=== PATIENT | female | born 1975 | race African-American/Black ===

== ENCOUNTER 2017-04-26 22:51 | Emergency (ER) | payer MEDICAID ==
[~2017-04-26] VITALS: Ht 177.8 cm; Wt 66.0 kg
[~2017-04-26 22:51] MED LIST: ONDA4TAB21 PO
[2017-04-27] MEDS ORDERED: SODIUM CHLORIDE 0.9% 1,000 ML IV ONE (01:23)
[2017-04-27] MEDS ORDERED: FAMOTIDINE 20MG/2ML VIAL IV ONE (01:30)
[2017-04-27 01:51] LABS: BASOPHILS % 1.4 % (0.0-2.0); HEMATOCRIT. 24.9 % (36.0-48.0); HEMOGLOBIN. 7.8 g/dL (12.0-16.0); LYMPHOCYTES % 13.3 % (20.0-50.0); MEAN CORPUSCULAR HEMOGLOBIN 20.7 pg (28.0-32.0); MEAN CORPUSCULAR VOLUME 65.8 fL (81.0-99.0); MEAN PLATELET VOLUME 8.6 fl (7.4-10.4); MONOCYTES % 4.6 % (2.0-8.0); NEUTROPHILS % 80.7 % (40.0-76.0); PLATELET 177 x1000/uL (130-400); RED BLOOD CELL COUNT 3.78 mill/uL (4.2-5.4); RED CELL DISTRIBUTION WIDTH 22.6 % (11.6-14.6)
[2017-04-27 01:52] LABS: CLARITY URINE CLOUDY (CLEAR); COLOR URINE YELLOW (YELLOW); GLUCOSE URINE NEGATIVE (NEGATIVE); KETONES URINE 3+ (NEGATIVE); LEUKOCYTE ESTERASE URINE NEGATIVE (NEGATIVE); NITRITE URINE NEGATIVE (NEGATIVE); OCCULT BLOOD URINE NEGATIVE (NEGATIVE); PROTEIN URINE TRACE (NEGATIVE); SPECIFIC GRAVITY URINE 1.023 (1.005-1.030)
[2017-04-27 01:56] LABS: CHLORIDE 105 mEq/L (98-107)
[2017-04-27 01:58] LABS: PARTIAL THROMBOPLASTIN TIME 25.9 sec (24.0-34.0); PROTHROMBIN TIME 10.7 sec
[2017-04-27 02:04] LABS: CARBON DIOXIDE 21 mEq/L (21-32)
[2017-04-27] MEDS ORDERED: METOCLOPRAMIDE HCL 10MG/2ML VIAL IV ONE (02:45)
[2017-04-27] MEDS ORDERED: POTASSIUM CHLORIDE 20MEQ/PACKET PO ONE (02:45)
[2017-04-27] MEDS ORDERED: ONDANSETRON HCL 4MG/2ML VIAL IV NR (03:00)
[2017-04-27 03:17] VITALS: BP 129/73
== END 2017-04-27 03:36 | disposition home or self-care (01) ==
LOC: ER 22:52
DX: E86.0 Dehydration (principal); E87.6 Hypokalemia; D64.9 Anemia, unspecified
CPT/HCPCS: 36415; 80053; 81001; 83690; 85025; 85610; 85730; 96361; 96374; 96375; 99284; J2405; J2765; J3490; J7030; Z7610

== ENCOUNTER 2017-11-19 12:05 | Emergency (ER) | payer MEDICAID ==
[~2017-11-19] VITALS: Ht 177.8 cm; Wt 64.0 kg
[2017-11-19 14:09] LABS: CLARITY URINE CLEAR (CLEAR); COLOR URINE YELLOW (YELLOW); KETONES URINE 4+ (NEGATIVE); LEUKOCYTE ESTERASE URINE NEGATIVE (NEGATIVE); NITRITE URINE NEGATIVE (NEGATIVE); OCCULT BLOOD URINE NEGATIVE (NEGATIVE); PH URINE >=9.0 (4.5-8.0); PROTEIN URINE 1+ (NEGATIVE); SPECIFIC GRAVITY URINE 1.024 (1.005-1.030)
[2017-11-19] MEDS ORDERED: SODIUM CHLORIDE 0.9% 1,000 ML IV ONE (14:50)
[2017-11-19] MEDS ORDERED: FAMOTIDINE 20MG/2ML VIAL IV STA (14:50)
[2017-11-19] MEDS ORDERED: ONDANSETRON HCL 4MG/2ML VIAL IV STA (14:50)
[2017-11-19] MEDS ORDERED: KETOROLAC 30MG/ML VIAL IV STA (14:50)
[2017-11-19] MEDS ORDERED: DICYCLOMINE 10 MG/5 ML ORAL SYR PO STA (14:50)
[2017-11-19 15:13] LABS: HEMATOCRIT. 30.2 % (36.0-48.0); HEMOGLOBIN. 9.6 g/dL (12.0-16.0); MEAN CORPUSCULAR HEMOGLOBIN 25.1 pg (28.0-32.0); MEAN CORPUSCULAR VOLUME 78.5 fL (81.0-99.0); MEAN PLATELET VOLUME 8.2 fl (7.4-10.4); PLATELET 235 x1000/uL (130-400); RED BLOOD CELL COUNT 3.84 mill/uL (4.2-5.4); RED CELL DISTRIBUTION WIDTH 23.2 % (11.6-14.6)
[2017-11-19 15:18] LABS: CHLORIDE 107 mEq/L (98-107)
[2017-11-19 15:23] LABS: CARBON DIOXIDE 20 mEq/L (21-32); ETHANOL BLOOD < 10 mg/dL
[2017-11-19 16:35] LABS: PLATELET ESTIMATE NORMAL
[2017-11-19 16:49] VITALS: BP 125/80
[2017-11-19 17:04] LABS: *AMPHETAMINES SCREEN URINE NEGATIVE (NEGATIVE); *BARBITURATES SCREEN URINE NEGATIVE (NEGATIVE); *BENZODIAZEPINES SCREEN URINE NEGATIVE (NEGATIVE); *COCAINE SCREEN URINE NEGATIVE (NEGATIVE); METHADONE URINE SCREEN NEGATIVE (NEGATIVE); OPIATES URINE SCREEN NEGATIVE (NEGATIVE); PHENCYCLIDINE URINE SCREEN NEGATIVE (NEGATIVE)
[2017-11-19 17:05] LABS: CANNABINOID URINE SCREEN PRESUMTIVE POSITIVE (NEGATIVE)
[2017-11-19] MEDS ORDERED: ONDANSETRON 4MG ODT PO ONE (17:45)
== END 2017-11-19 18:33 | disposition home or self-care (01) ==
LOC: ER 12:37
DX: E86.0 Dehydration (principal); F17.210 Nicotine dependence, cigarettes, uncomplicated; F12.10 Cannabis abuse, uncomplicated
CPT/HCPCS: 36415; 80053; 80305; 81001; 81025; 83690; 85025; 96361; 96374; 96375; 99284; G0482; J1885; J2405; J3490; J7030; Q0162; Z7610

== ENCOUNTER 2017-11-20 17:27 | Emergency (ER) | payer MEDICAID ==
[~2017-11-20] VITALS: Ht 157.5 cm; Wt 63.0 kg
[2017-11-20 18:57] VITALS: BP 128/84
== END 2017-11-20 22:25 | disposition left against medical advice (07) ==
LOC: ER 17:55
DX: K92.0 Hematemesis (principal); Z53.21 Procedure and treatment not carried out due to patient leaving prior to being seen by health care provider

== ENCOUNTER 2019-01-01 06:46 | Inpatient (IN) | payer MEDICAID ==
[2019-01-01] VITALS (7 sets, daily range): BP systolic 100–122; BP diastolic 64–81
[~2019-01-01] VITALS: Ht 177.8 cm; Wt 62.1 kg
[2019-01-01] MEDS ORDERED: SODIUM CHLORIDE 0.9% 1,000 ML IV ONE (07:36)
[2019-01-01 07:44] LABS: CLARITY URINE CLEAR (CLEAR); COLOR URINE YELLOW (YELLOW); KETONES URINE 4+ (NEGATIVE); LEUKOCYTE ESTERASE URINE NEGATIVE (NEGATIVE); NITRITE URINE NEGATIVE (NEGATIVE); OCCULT BLOOD URINE NEGATIVE (NEGATIVE); PROTEIN URINE 1+ (NEGATIVE); SPECIFIC GRAVITY URINE 1.028 (1.005-1.030); UROBILINOGEN URINE 0.2 E.U./dL (0.2-1.0)
[2019-01-01] MEDS ORDERED: ONDANSETRON HCL 4MG/2ML INJ IV ONE (07:45)
[2019-01-01 08:21] LABS: MEAN CORPUSCULAR VOLUME 67.6 fL (81.0-99.0); MEAN PLATELET VOLUME 8.6 fl (7.4-10.4); PLATELET 264 x1000/uL (130-400); RED BLOOD CELL COUNT 3.41 mill/uL (4.2-5.4); RED CELL DISTRIBUTION WIDTH 28.1 % (11.6-14.6)
[2019-01-01 08:22] LABS: CHLORIDE 108 mEq/L (98-107)
[2019-01-01 08:29] LABS: HEMATOCRIT. 23.1 % (36.0-48.0); HEMOGLOBIN. 6.8 g/dL (12.0-16.0)
[2019-01-01 08:32] LABS: HCG SCREEN NEGATIVE
[2019-01-01 08:50] LABS: PLATELET ESTIMATE NORMAL
[2019-01-01] MEDS ORDERED: IPRATROPIUM/ALBUTEROL 0.5-3(2.5)MG/3ML NEB INH PRN (11:45)
[2019-01-01] MEDS ORDERED: HYDROCODONE/ACETAMINOPHEN 5/325MG TABLET PO PRN (11:45)
[2019-01-01] MEDS ORDERED: MORPHINE SULFATE 4 MG/ML CPJ (NOT FOR IM USE) IV PRN (11:45)
[2019-01-01] MEDS: ONDANSETRON HCL 4MG/2ML INJ IV PRN ×2 (15:24→20:57)
[2019-01-01] MEDS ORDERED: FERR-71 MT (15:52)
[2019-01-01] MEDS ORDERED: ACETAMINOPHEN 325MG TABLET PO PRN (17:00)
[2019-01-02] VITALS: BP 109/76
[2019-01-02 04:00] VITALS: BP 110/80
[2019-01-02] MEDS: ONDANSETRON HCL 4MG/2ML INJ IV PRN ×3 (06:33→18:36)
[2019-01-02 07:08] LABS: HEMATOCRIT. 26.3 % (36.0-48.0); HEMOGLOBIN. 8.4 g/dL (12.0-16.0); MEAN CORPUSCULAR HEMOGLOBIN 22.6 pg (28.0-32.0); MEAN CORPUSCULAR VOLUME 70.5 fL (81.0-99.0); MEAN PLATELET VOLUME 8.8 fl (7.4-10.4); PLATELET 219 x1000/uL (130-400); RED BLOOD CELL COUNT 3.73 mill/uL (4.2-5.4); RED CELL DISTRIBUTION WIDTH 29.4 % (11.6-14.6)
[2019-01-02 07:34] LABS: CHLORIDE 108 mEq/L (98-107)
[2019-01-02 07:48] LABS: HEMATOCRIT 26.4 % (36.0-48.0); HEMOGLOBIN 8.2 g/dL (12.0-16.0)
[2019-01-02 08:00] VITALS: BP 121/75
[2019-01-02 08:03] LABS: LDL CHOLESTEROL 64 mg/dL (5-100)
[2019-01-02 08:05] LABS: HDL CHOLESTEROL 51 mg/dL (40-59)
[2019-01-02 12:00] VITALS: BP 108/78
[2019-01-02] MEDS ORDERED: POTASSIUM PHOS,M-BASIC-D-BASIC 15 MMOL in DEXT 5% WATER 245 ML IV SCH (14:00)
[2019-01-02] MEDS ORDERED: MAGNESIUM 2 G PREMIX 50 ML IV SCH (14:00)
[2019-01-02 16:00] VITALS: BP 109/76
[2019-01-02] MEDS ORDERED: DEXTROSE 50% WATER 50ML SYRINGE IV PRN ×2 (16:15)
[2019-01-02] MEDS ORDERED: BLOOD SUGAR DIAGNOSTIC STRIP TEST SCH (17:20)
[2019-01-02] MEDS: BLOOD SUGAR DIAGNOSTIC STRIP TEST SCH ×2 (17:20→21:50)
[2019-01-02] MEDS: INSULIN LISPRO 100 UNITS/ML SUBCUT SCH ×2 (17:50→21:00)
[2019-01-02 20:00] VITALS: BP 139/90
[2019-01-02] MEDS ORDERED: MAGNESIUM 2 G PREMIX 50 ML IV NR (20:00)
[2019-01-02 20:12] LABS: PLATELET ESTIMATE NORMAL
[2019-01-03] VITALS: BP 124/84
[2019-01-03 04:00] VITALS: BP 129/83
[2019-01-03] MEDS: INSULIN LISPRO 100 UNITS/ML SUBCUT SCH ×2 (06:31→12:35)
[2019-01-03] MEDS: BLOOD SUGAR DIAGNOSTIC STRIP TEST SCH ×2 (06:31→12:20)
[2019-01-03 06:32] LABS: CHLORIDE 103 mEq/L (98-107); HEMATOCRIT. 29.8 % (36.0-48.0); HEMOGLOBIN. 9.3 g/dL (12.0-16.0); MEAN CORPUSCULAR HEMOGLOBIN 21.8 pg (28.0-32.0); MEAN CORPUSCULAR VOLUME 69.6 fL (81.0-99.0); MEAN PLATELET VOLUME 8.8 fl (7.4-10.4); PLATELET 222 x1000/uL (130-400); RED BLOOD CELL COUNT 4.28 mill/uL (4.2-5.4); RED CELL DISTRIBUTION WIDTH 29.9 % (11.6-14.6)
[2019-01-03 08:00] VITALS: BP 122/82
[2019-01-03] MEDS ORDERED: POTASSIUM CHLORIDE 20MEQ TABLET SR PO SCH (11:30)
[2019-01-03 12:00] VITALS: BP 122/80
[2019-01-03 16:00] VITALS: BP 123/79
[2019-01-03 16:06] VITALS: BP 124/74
[2019-01-04 13:01] LABS: PLATELET ESTIMATE NORMAL
== END 2019-01-03 16:45 | disposition home or self-care (01) | DRG 249 ==
LOC: ER 06:46 → 6WST 09:53 → EDBEDREQTM 10:08 → EDBEDREQ 10:08 → ENRESERV 11:37 → 6WST 14:51
PROVIDERS: ADMIT Internal Medicine; ATTEND Internal Medicine
PROC: 30233N1 Transfusion of Nonautologous Red Blood Cells into Peripheral Vein, Percutaneous Approach (ICD-10-PCS; principal; 2019-01-01)
DX: A08.4 Viral intestinal infection, unspecified (principal); E87.8 Other disorders of electrolyte and fluid balance, not elsewhere classified; E83.39 Other disorders of phosphorus metabolism; E83.42 Hypomagnesemia; F12.90 Cannabis use, unspecified, uncomplicated; D64.9 Anemia, unspecified; F17.210 Nicotine dependence, cigarettes, uncomplicated
CPT/HCPCS: 36415; 36430; 76830; 76856; 80048; 80061; 82962; 83036; 83735; 84100; 84443; 84703; 85014; 85018; 86850; 86900; 86920; 93970; 96361; 96374; 99291; J2405; J3475; J3490; J7030; J7040; J7050; J7060; P9016